=== PATIENT | male | born 1995 | race Caucasian/White ===

== ENCOUNTER 2018-06-25 10:35 | Emergency (ER) | payer MEDICAID ==
[~2018-06-25] VITALS: Ht 200.7 cm; Wt 82.0 kg
[~2018-06-25 10:35] MED LIST: TRAZODONE; [UNRECOGNIZED DRUG - OTHER]
[2018-06-25] MEDS ORDERED: ONDANSETRON HCL 4MG/2ML INJ IV STA (11:37)
[2018-06-25] MEDS ORDERED: SODIUM CHLORIDE 0.9% 1,000 ML IV ONE (11:37)
[2018-06-25] MEDS ORDERED: KETOROLAC 30MG/ML VIAL IV STA (11:37)
[2018-06-25] MEDS ORDERED: MAGNESIUM/ALUMINUM HYDROXIDE/SIMETHICONE 30ML UDC PO STA (11:37)
[2018-06-25 12:18] LABS: BASOPHILS % 0.4 % (0.0-2.0); EOSINOPHILS % 0.4 % (0.0-5.0); HEMATOCRIT. 43.6 % (42.0-52.0); HEMOGLOBIN. 15.1 g/dL (14.0-18.0); MEAN CORPUSCULAR HEMOGLOBIN 30.9 pg (28.0-32.0); MEAN CORPUSCULAR VOLUME 89.2 fL (80.0-94.0); MEAN PLATELET VOLUME 9.5 fl (7.4-10.4); MONOCYTES % 8.6 % (2.0-8.0); NEUTROPHILS % 72.6 % (40.0-76.0); PLATELET 135 x1000/uL (130-400); RED BLOOD CELL COUNT 4.88 mill/uL (4.7-6.1); RED CELL DISTRIBUTION WIDTH 13.2 % (11.6-14.6)
[2018-06-25 12:24] LABS: CHLORIDE 112 mEq/L (98-107)
[2018-06-25 14:04] VITALS: BP 122/83
== END 2018-06-25 14:07 | disposition home or self-care (01) ==
LOC: ER 10:35
DX: R10.33 Periumbilical pain (principal); F32.9 Major depressive disorder, single episode, unspecified; F20.9 Schizophrenia, unspecified
CPT/HCPCS: 36415; 80053; 83690; 85025; 96374; 96375; 99283; J1885; J2405; J7030

== ENCOUNTER 2018-08-06 09:21 | Emergency (ER) | payer MEDICAID ==
[~2018-08-06] VITALS: Ht 200.7 cm; Wt 76.0 kg
[2018-08-06 09:35] VITALS: BP 118/89
[2018-08-06] MEDS ORDERED: ALBUTEROL (0.083%) 2.5MG/3ML NEB HHN STA (09:42)
== END 2018-08-06 11:07 | disposition home or self-care (01) ==
LOC: ER 09:21
DX: R05 Cough (principal); F20.9 Schizophrenia, unspecified; F32.9 Major depressive disorder, single episode, unspecified
CPT/HCPCS: 71045; 99283; J7611; 94640

== ENCOUNTER 2018-08-17 13:04 | Emergency (ER) | payer MEDICAID ==
[~2018-08-17] VITALS: Ht 200.7 cm; Wt 100.0 kg
[2018-08-17] MEDS ORDERED: LORAZEPAM 2MG/ML CPJ ONE (13:21)
[2018-08-17] MEDS ORDERED: SODIUM CHLORIDE 0.9% 1,000 ML IV ONE ×2 (13:48→16:37)
[2018-08-17] MEDS ORDERED: LORAZEPAM 2MG/ML CPJ IV ONE ×2 (14:00→14:15)
[2018-08-17] MEDS ORDERED: DIPHENHYDRAMINE 50MG/ML VIAL IV ONE (14:00)
[2018-08-17] MEDS ORDERED: HALOPERIDOL LACTATE 5MG/ML VIAL IM ONE ×2 (14:00→19:30)
[2018-08-17 14:05] LABS: CLARITY URINE CLEAR (CLEAR); COLOR URINE YELLOW (YELLOW); KETONES URINE NEGATIVE (NEGATIVE); LEUKOCYTE ESTERASE URINE NEGATIVE (NEGATIVE); NITRITE URINE NEGATIVE (NEGATIVE); OCCULT BLOOD URINE NEGATIVE (NEGATIVE); PH URINE 7.5 (4.5-8.0); PROTEIN URINE 1+ (NEGATIVE); SPECIFIC GRAVITY URINE 1.009 (1.005-1.030); UROBILINOGEN URINE 0.2 E.U./dL (0.2-1.0)
[2018-08-17 14:20] LABS: *AMPHETAMINES SCREEN URINE NEGATIVE (NEGATIVE); *BARBITURATES SCREEN URINE NEGATIVE (NEGATIVE); *BENZODIAZEPINES SCREEN URINE NEGATIVE (NEGATIVE); *COCAINE SCREEN URINE NEGATIVE (NEGATIVE); METHADONE URINE SCREEN NEGATIVE (NEGATIVE); OPIATES URINE SCREEN NEGATIVE (NEGATIVE)
[2018-08-17 14:21] LABS: CANNABINOID URINE SCREEN NEGATIVE (NEGATIVE); PHENCYCLIDINE URINE SCREEN NEGATIVE (NEGATIVE)
[2018-08-17 14:48] LABS: BASOPHILS % 0.8 % (0.0-2.0); EOSINOPHILS % 0.5 % (0.0-5.0); HEMATOCRIT. 39.7 % (42.0-52.0); HEMOGLOBIN. 13.9 g/dL (14.0-18.0); LYMPHOCYTES % 30.4 % (20.0-50.0); MEAN CORPUSCULAR HEMOGLOBIN 31.3 pg (28.0-32.0); MEAN CORPUSCULAR VOLUME 89.4 fL (80.0-94.0); MEAN PLATELET VOLUME 8.9 fl (7.4-10.4); MONOCYTES % 5.8 % (2.0-8.0); NEUTROPHILS % 62.5 % (40.0-76.0); PLATELET 135 x1000/uL (130-400); RED BLOOD CELL COUNT 4.44 mill/uL (4.7-6.1); RED CELL DISTRIBUTION WIDTH 13.7 % (11.6-14.6)
[2018-08-17 14:56] LABS: CHLORIDE 107 mEq/L (98-107)
[2018-08-17 15:01] LABS: ETHANOL BLOOD < 10 mg/dL
[2018-08-17 15:04] LABS: CREATINE KINASE 179 IU/L (39-308)
[2018-08-18] MEDS ORDERED: QUETIAPINE FUMARATE 100MG TABLET PO SCH (01:15)
[2018-08-18 16:00] VITALS: BP 122/88
== END 2018-08-18 16:15 | disposition home or self-care (01) ==
LOC: ER 13:04
DX: R55 Syncope and collapse (principal); F23 Brief psychotic disorder; F32.9 Major depressive disorder, single episode, unspecified
CPT/HCPCS: 36415; 70450; 71045; 80053; 80305; 80307; 80320; 80329; 81003; 82140; 82550; 84443; 84484; 85025; 93005; 96361; 96372; 96374; 96375; 99284; J1200; J1630; J2060; J7030; G0480

== ENCOUNTER 2018-08-20 13:56 | Emergency (ER) | payer MEDICAID ==
[~2018-08-20] VITALS: Ht 198.1 cm; Wt 81.0 kg
[2018-08-20] MEDS ORDERED: ALPRAZOLAM 0.5 MG TABLET PO ONE (16:30)
[2018-08-20 19:09] VITALS: BP 115/97
== END 2018-08-20 19:14 | disposition home or self-care (01) ==
LOC: ER 14:01
DX: R05 Cough (principal); F32.9 Major depressive disorder, single episode, unspecified; F20.9 Schizophrenia, unspecified; Q87.40 Marfan syndrome, unspecified; Z87.891 Personal history of nicotine dependence
CPT/HCPCS: 36415; 71046; 85379; 99284

== ENCOUNTER 2020-07-21 13:00 | Emergency (ER) | payer MEDICAID ==
[~2020-07-21] VITALS: Ht 200.7 cm; Wt 83.0 kg
[2020-07-21 13:04] VITALS: BP 135/97
[2020-07-21] MEDS ORDERED: BACITRACIN ZINC OINT UDPKT TOP ONE (13:45)
[2020-07-21] MEDS ORDERED: ACETAMINOPHEN 325MG TABLET PO ONE (13:45)
[2020-07-21] MEDS ORDERED: LIDOCAINE HCL/PF 1% 10 MG/ML 5ML VIAL IJ ONE (13:45)
[2020-07-21] MEDS ORDERED: SULF1TAB47 MT (14:26)
== END 2020-07-21 14:38 | disposition home or self-care (01) ==
LOC: ER 13:00
DX: L03.011 Cellulitis of right finger (principal); Q87.40 Marfan syndrome, unspecified; F41.9 Anxiety disorder, unspecified; F32.9 Major depressive disorder, single episode, unspecified; F20.9 Schizophrenia, unspecified; I51.9 Heart disease, unspecified
CPT/HCPCS: 10060; 99282; A4217; J3490; Z7610

== ENCOUNTER 2020-07-23 13:21 | Emergency (ER) | payer MEDICAID ==
[~2020-07-23] VITALS: Ht 200.7 cm; Wt 82.0 kg
[~2020-07-23 13:21] MED LIST changes: +SULF1TAB47 MT
[2020-07-23 14:30] VITALS: BP 140/80
== END 2020-07-23 14:31 | disposition home or self-care (01) ==
LOC: ER 13:54
DX: Z48.00 Encounter for change or removal of nonsurgical wound dressing (principal); F20.9 Schizophrenia, unspecified; F32.9 Major depressive disorder, single episode, unspecified; F41.9 Anxiety disorder, unspecified; I51.9 Heart disease, unspecified; Q87.40 Marfan syndrome, unspecified
CPT/HCPCS: 99281